=== PATIENT | male | born 1980 | race Caucasian/White ===

== ENCOUNTER 2018-06-04 02:25 | Emergency (ER) | payer SELFPAY ==
[~2018-06-04] VITALS: Ht 157.5 cm; Wt 81.6 kg
[2018-06-04 02:27] VITALS: BP 110/77
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
[2018-06-04 02:45] VITALS: BP 110/77
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
== END 2018-06-04 02:45 ==
LOC: MED 02:25
DX: Z02.89 Encounter for other administrative examinations (principal); V43.52XA Car driver injured in collision with other type car in traffic accident, initial encounter; Y93.89 Activity, other specified; Y92.89 Other specified places as the place of occurrence of the external cause; Y99.8 Other external cause status
CPT/HCPCS: 99283